=== PATIENT | male | born 1975 | race Caucasian/White ===

== ENCOUNTER 2018-07-22 19:16 | Emergency (ER) | payer SELFPAY ==
[~2018-07-22] VITALS: Ht 193 cm; Wt 86.6 kg
[2018-07-22] MEDS ORDERED: NKM (19:28)
[2018-07-22 19:34] VITALS: BP 142/99
[2018-07-22] MEDS ORDERED: KENALOG 0.025%15 GM TP (19:40)
[2018-07-22 19:46] VITALS: BP 144/91
--- NOTE | 2018-07-22 20:41 | Emergency Room Report ---
History of Present Illness General Chief Complaint: Skin Rash/Abscess Source: Patient Present Illness HPI The patient is a 44-year-old male presenting for facial rash for the past 2 weeks. He noticed redness above the L eye but denies any other symptoms. He denies pain, itching, eye discharge, blurred vision Allergies: Coded Allergies: NO KNOWN DRUG ALLERGIES (Unverified Allergy, Unknown, 12/17/14) Patient History Past Medical History: see triage record Pertinent Family History: none Reviewed Nursing Documentation: PMH: Agreed; PSxH: Agreed Nursing Documentation-PMH Past Medical History: No Stated History Review of Systems All Other Systems: negative except mentioned in HPI Physical Exam Vital Signs Date Time Temp Pulse Resp B/P (MAP) Pulse Ox O2 Delivery O2 Flow Rate FiO2 07/22/18 19:21 98.1 81 16 142/99 97 Room Air Sp02 EP Interpretation: reviewed, normal General Appearance: no apparent distress, alert, GCS 15, non-toxic Head: normocephalic, atraumatic Eyes: bilateral eye normal inspection, bilateral eye PERRL, bilateral eye EOMI ENT: hearing grossly normal, normal pharynx, no angioedema, normal voice Musculoskeletal: back normal, gait/station normal, normal range of motion, non- tender Neurologic: alert, oriented x3, responsive, motor strength/tone normal, sensory intact, speech normal Psychiatric: judgement/insight normal, memory normal, mood/affect normal, no suicidal/homicidal ideation Skin: warm/dry, normal turgor, rash - L macular erythema of L forehead. Does not involve eyelid Medical Decision Making PA Attestation Dr. eNwman is my supervising physician. Patient management was discussed with my supervising physician Diagnostic Impression: Primary Impression: Dermatitis ER Course The patient is a 44-year-old male presenting for facial rash for the past 2 weeks Ddx considered include but not limited to insect bite, contact dermatitis, eczema, cellulitis, among others PE: afebrile. NAD L macular erythema of L forehead. Does not involve eyelid PERRL. EOMI. No conjunctival injection or DC. The patient is given prescription for triamcinolone and told to follow-up with primary doctor. ER precautions given Last Vital Signs Date Time Temp Pulse Resp B/P (MAP) Pulse Ox O2 Delivery O2 Flow Rate FiO2 07/22/18 19:46 97.9 73 16 144/91 98 Room Air Status: improved Disposition: HOME, SELF-CARE Condition: Improved Scripts Triamcinolone Acet (Triamcinolone Acetonide) 15 Gm Cream..g. 1 APPLIC TP TID, #15 GM Prov: TRAE SAUNDERS 07/22/18 Patient Instructions: Rash Additional Instructions: I discussed my findings with the patient. All questions and concerns have been answered. Treatment and medication compliance have been addressed. I advised the patient that they need to follow up with PMD in 3-5 days. Return to ED if symptoms worsen, new symptoms arise, or if needed for any reason. Patient verbalized understanding of discharge instructions. TRAE SAUNDERS Jul 22, 2018 20:41
== END 2018-07-22 19:46 | disposition home or self-care (01) ==
LOC: EMR 19:41
DX: L30.9 Dermatitis, unspecified (principal)
CPT/HCPCS: 99282